=== PATIENT | male | born 1975 | race Caucasian/White ===

== ENCOUNTER 2018-02-07 15:02 | Inpatient (IN) | payer OTHER ==
[2018-02-07 16:12] VITALS: BMI 24.7
--- NOTE | 2018-02-07 16:25 | HP ---
COWS - Scale Resting Pulse: 0= NC 80 or Below Sweatin= No chills or Flushing Restless Observation: 1= Difficult to Sit Still Pupil Size: 0= Normal to Room Light Bone or Joint Aches: 0= None Runny Nose/ Eye Tearin= None GI Upset > 30mins: 2= Nausea/Diarrhea Tremor Observation: 2= Slight Tremor Visible Yawning Observation: 1= 1-2x During Session Anxiety or Irritability: 2=Irritable/Anxious Goose Flesh Skin: 0=Smooth Skin COWS Score: 8 CIWA Score - CIWA Score Nausea/Vomitin-Mild Nausea/No Vomiting Muscle Tremors: 4-Moderate,w/Arms Extend Anxiety: 1-Mildly Anxious Agitation: 1-Slight > Activity Paroxysmal Sweats: No Perspiration Orientation: 0-Oriented Tacttile Disturbances: 0-None Auditory Disturbances: 0-None Visual Disturbances: 0-None Headache: 2-Mild CIWA-Ar Total Score: 9 Admission ROS S - HPI Chief Complaint: Here for alcohol withdrawal and detox. Allergies/Adverse Reactions: Allergies Allergy/AdvReac Type Severity Reaction Status Date / Time No Known Allergies Allergy Verified 02/07/18 17:02 History of Present Illness: Hx of alcohol use disorder since age 20. Currently drinks 1 pint vodka daily. Last drink on 02/06. Hx heroin use disorder. Uses approx 5 bags daily IV, despite being on methadone maintenance. Last heroin use 02/06/18. Last methadone was 02/07/18. States on 110 mg PO daily. [facility] is [facility] @ [address] [place] [address]. .(ID# [id number]) ocaine use disorder since age 20. Uses approx 2 gm IV. Last use on 02/06. Hx. Asthma last exacerbation approx 3 months ago. States has Myasthenia Gravis w/ last prednisone 1 month ago. - Ebola screening Have you traveled outside of the country in the last 21 days: No Have you had contact with anyone from an Ebola affected area: No Have you been sick,other than usual withdrawal symptoms: No Do you have a fever: No - Review of Systems Constitutional: Chills, Loss of Appetite, Changes in sleep (Occ takes unknow pill for sleep. Last used 1 week ago.), Unintentional Wgt. Loss (r/t change in eating habits.) EENT: reports: Dental Problems (Missing a few teeth. No difficulty chewing or swallowing.), Other (Difficulty opening (R) eye lid. States r/t Myasthenia Gravis. Denies double vision.) Respiratory: reports: Other (Hx. Asthma. Denies SOB or wheezing at this time.) Cardiac: reports: No Symptoms Reported GI: reports: Constipated (Stool is hard and has difficulty pushing.) : reports: No Symptoms Reported Musculoskeletal: reports: Back Pain (Occ when sleeps. Subsides on own. 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.) Hematology: reports: No Symptoms Reported Psychiatric: reports: Orientated x3, Agitated, Anxious, Depressed (Recent depression r/t to current drug situation.) Patient History - Patient Medical History Hx Anemia: No Hx Asthma: Yes (Uses albuterol inhaler, as needed) Hx Chronic Obstructive Pulmonary Disease (COPD): No Hx Cancer: No Hx Cardiac Disorders: No Hx Congestive Heart Failure: No Hx Hypertension: Yes (Stopped 6 months ago ) Hx Hypercholesterolemia: Yes (Stopped 6 months ago ) Hx Pacemaker: No HX Cerebrovascular Accident: No Hx Seizures: No Hx Dementia: No Hx Diabetes: No Hx Gastrointestinal Disorders: No Hx Liver Disease: No Hx Genitourinary Disorders: No Hx Sexually Transmitted Disorders: No Hx Renal Disease (ESRD): No Hx Thyroid Disease: No Hx Human Immunodeficiency Virus (HIV): No Hx Hepatitis C: Yes (Treated in past w/ interferon) Hx Depression: Yes (No suicide or violent ideation.) Hx Suicide Attempt: Yes Hx Bipolar Disorder: No Hx Schizophrenia: No - Smoking Cessation Smoking history: Current every day smoker Have you smoked in the past 12 months: Yes Aproximately how many cigarettes per day: 10 Hx Chewing Tobacco Use: No Initiated information on smoking cessation: Yes 'Breaking Loose' booklet given: 02/07/18 - Substance & Tx. History Hx Alcohol Use: Yes - Substances Abused Alcohol Route: Oral Frequency: Daily Amount used: 1 pint vodka Age of first use: 23 Date of Last Use: 02/06/18 (12 noon) Cocaine Route: Injection Frequency: Daily Amount used: 2 gm Age of first use: 20 Date of Last Use: 02/06/18 Heroin Route: Injection Frequency: Daily Age of first use: 20 Date of Last Use: 02/06/18 Family Disease History - Family Disease History Family History: Denies Admission Physical Exam [facility] - Vital Signs Vital Signs: Vital Signs - 24 hr 02/07/18 16:10 Temperature 96.8 F L Pulse Rate 58 L Respiratory 18 Rate Blood Pressure 111/75 - Physical General Appearance: Yes: Mild Distress, Tremorous, Anxious HEENTM: Yes: EOMI, Hearing grossly Normal, Normal Voice, CHHAYA (Pupils at 2 mm.) , Other (Rigo scleral w/ injection. Conjunctiva pink and w/o exudate. (R) droopy eyelid and (R) facial droop.) Respiratory: Yes: Lungs Clear, Normal Breath Sounds, No Respiratory Distress Neck: Yes: No masses,lesions,Nodules, Supple Breast: Yes: Breast Exam Deferred Cardiology: Yes: Regular Rhythm, S1, S2, Bradycardia Abdominal: Yes: Normal Bowel Sounds, Non Tender, Soft, Hernia (Supra-umbilical hernia. Reducible and non-tender.) Back: Yes: Normal Inspection Musculoskeletal: Yes: full range of Motion, Gait Steady Extremities: Yes: Normal Capillary Refill, Non-Tender, Tremors Neurological: Yes: Fully Oriented, Alert, Motor Strength 5/5 Integumentary: Yes: Dry (Dry mucous membranes. Decreased skin turgor.), Track Suggs Lymphatic: Yes: Within Normal Limits - Addiitonal Findings: Old and new track suggs on arms. - Diagnostic (1) Alcohol withdrawal Current Visit: Yes Status: Acute Qualifiers: Complication of substance-induced condition: uncomplicated Qualified Code(s ): F10.230 - Alcohol dependence with withdrawal, uncomplicated (2) Methadone maintenance therapy patient Current Visit: Yes Status: Chronic (3) Cocaine use disorder Current Visit: Yes Status: Acute (4) Nicotine dependence Current Visit: Yes Status: Acute Qualifiers: Nicotine product type: cigarettes Substance use status: in withdrawal Qualified Code(s): F17.213 - Nicotine dependence, cigarettes, with withdrawal (5) Myasthenia gravis Current Visit: Yes Status: Acute (6) Hernia, umbilical Current Visit: Yes Status: Chronic Qualifiers: Obstruction and gangrene presence: without obstruction or gangrene Qualified Code(s): K42.9 - Umbilical hernia without obstruction or gangrene (7) Heroin use Current Visit: Yes Status: Acute (8) Dehydration Current Visit: Yes Status: Acute (9) Constipation Current Visit: Yes Status: Acute Qualifiers: Constipation type: unspecified constipation type Qualified Code(s): K59.00 - Constipation, unspecified (10) Bradycardia Current Visit: Yes Status: Chronic Cleared for Admission [facility] - Detox or Rehab [facility] Level of Care: Medically Supervised Detox Regimen/Protocol: Librium [facility] Breath Alcohol Content Breath Alcohol Content: 0 Urine Drug Screen - Results Drug Screen Negative: No Urine Drug Screen Results: ASHLY-Cocaine, OPI-Opiates, MTD-Methadone
[2018-02-07] MEDS ORDERED: MAGNESIUM HYDROX 2400MG/30ML ORAL SUSPENSION 30 ML CUP PO PRN (17:29)
[2018-02-07] MEDS ORDERED: MAG HYDROX/AL HYDROX/SIMETH 30 ML UNIT-DOSE CUP PO PRN (17:29)
[2018-02-07] MEDS ORDERED: P-EPHED 60MG/TRIPROLIDI 2.5MG TABLET PO PRN (17:29)
[2018-02-07] MEDS ORDERED: IBUPROFEN 400 MG TABLET (FP) PO PRN (17:29)
[2018-02-07] MEDS ORDERED: NICOTINE POLACRILEX 2 MG GUM BC PRN (17:29)
[2018-02-07] MEDS ORDERED: MAGNESIUM CITRATE 300 ML BOTTLE PO PRN (17:29)
[2018-02-07] MEDS ORDERED: guaiFENesin/D-METHORPHAN HB 10 ML UNIT-DOSE CUPS PO PRN (17:29)
[2018-02-07] MEDS ORDERED: hydrOXYzine PAMOATE 50 MG CAPSULE (FP) PO PRN (17:29)
[2018-02-07] MEDS ORDERED: MENTHOL/PHENOL 1 EACH UD MM PRN (17:29)
[2018-02-07] MEDS ORDERED: chlordiazePOXIDE HCL 25 MG CAPSULE PO PRN (17:29)
[2018-02-07] MEDS ORDERED: ACETAMINOPHEN 325 MG TABLET (FP) PO PRN (17:29)
[2018-02-07] MEDS ORDERED: LOPERAMIDE HCL 2 MG CAPSULE PO PRN (17:29)
[2018-02-07] MEDS ORDERED: chlordiazePOXIDE HCL 25 MG CAPSULE PO ONE (18:45)
[2018-02-07] MEDS: chlordiazePOXIDE HCL 25 MG CAPSULE PO SCH (22:05)
[2018-02-07] MEDS: THIAMINE HCL 100 MG TABLET (FP) PO SCH (22:05)
[2018-02-07] MEDS: DOCUSATE SODIUM 100 MG CAPSULE (FP) PO SCH (22:05)
[2018-02-08 04:12] LABS: URINE APPEARANCE TURBID; URINE BILIRUBIN NEGATIVE (<2.0 mg/dL); URINE BLOOD NEGATIVE (NEGATIVE); URINE COLOR AMBER; URINE GLUCOSE (UA) NEGATIVE (NEGATIVE); URINE KETONE NEGATIVE (NEGATIVE); URINE LEUK ESTERASE TRACE (NEGATIVE); URINE NITRITE NEGATIVE (NEGATIVE); URINE PROTEIN NEGATIVE (NEGATIVE)
[2018-02-08 04:24] LABS: EPI CELLS RARE /HPF (FEW); URINE BACTERIA MODERATE /hpf (NONE SEEN); URINE HYALINE CAST 7 /lpf; URINE MUCUS RARE
[2018-02-08] MEDS: chlordiazePOXIDE HCL 25 MG CAPSULE PO SCH ×4 (05:24→22:12)
[2018-02-08] MEDS ORDERED: METHADONE HCL 10 MG TABLET PO SCH (06:00)
[2018-02-08] MEDS ORDERED: METHADONE HCL 10 MG TABLET ONE (09:08)
[2018-02-08] MEDS ORDERED: METHADONE HCL 40 MG DISPERSABLE TABLET ONE (09:09)
[2018-02-08] MEDS: METHADONE 80 MG, METHADONE 30 MG PO SCH (09:13)
[2018-02-08 10:17] LABS: HEMATOCRIT 39.2 % (35.4-49); HEMOGLOBIN 12.7 GM/dL (11.7-16.9); MCH 26.1 pg (25.7-33.7); MCHC 32.4 g/dl (32.0-35.9); MEAN CELL VOLUME 80.6 fl (80-96); PLATELET COUNT 183 K/MM3 (134-434); RBC 4.86 M/mm3 (4.00-5.60); RDW 16.9 % (11.9-15.9)
[2018-02-08] MEDS: PRENATAL VITAMINS W/ FOLIC ACID TABLET (FP) PO SCH (10:34)
[2018-02-08] MEDS: NICOTINE 14 MG/24 HOURS TOPICAL PATCH TD SCH (10:34)
[2018-02-08 10:52] LABS: CHLORIDE 107 mmol/L (98-107); POTASSIUM 4.4 mmol/L (3.5-5.1); SODIUM 143 mmol/L (136-145)
[2018-02-08 11:10] LABS: ALBUMIN 3.1 g/dl (3.4-5.0); ALK PHOS 88 U/L (45-117); ANION GAP 7 (8-16); BILIRUBIN,TOTAL 0.4 mg/dL (0.2-1.0); BLOOD UREA NITROGEN 14 mg/dL (7-18); CALCIUM 8.1 mg/dL (8.5-10.1); CO2 29 mmol/L (21-32); CREATININE 0.7 mg/dL (0.7-1.3); GLUCOSE,RANDOM 94 mg/dL (74-106); SGOT/AST 47 U/L (15-37); SGPT/ALT 70 U/L (12-78); TOT PROT 5.5 g/dl (6.4-8.2)
--- NOTE | 2018-02-08 11:17 | CONSULT ---
[facility] Psychiatric Consult - Data Date of interview: 02/08/18 Admission source: [facility] Identifying data: Readmission to [facility] for this 42 y/o [place] male seeking detox treatment on for heroin,cocaine,alcohol and cannabis dependence.Patient is single,a father of one,homeless,unemployed and supported on Public Assistance. Substance Abuse History: Confirmed by the patient in this interview.Smoking history: Current every day smoker. Have you smoked in the past 12 months: Yes. Aproximately how many cigarettes per day: 10. Hx Chewing Tobacco Use: No. Initiated information on smoking cessation: Yes. 'Breaking Loose' booklet given : 02/07/18. - Substance & Tx. History. Hx Alcohol Use: Yes. - Substances Abused. Alcohol. Route: Oral. Frequency: Daily. Amount used: 1 pint vodka. Age of first use: 23. Date of Last Use: 02/06/18 (12 noon). Cocaine. Route: Injection. Frequency: Daily. Amount used: 2 gm. Age of first use: 20. Date of Last Use: 02/06/18. Heroin. Route: Injection. Frequency: Daily. Age of first use: 20. Date of Last Use: 02/06/18 Medical History: Multiple medical co-morbidities : hepatitis C,hypertension, myasthenia gravis,dyslipidemia,bronchial asthma and umbilical hernia (untreated) . Psychiatric History: Patient denies history of psychiatric hospitalizations or suicide attempts.Mr Almaguer is currently on methadone maintenance (110 mg/day) at the [facility] ([facility]) in [facility]. Physical/Sexual Abuse/Trauma History: Patient denies. Additional Comment: Urine Drug Screen Results: ASHLY-Cocaine, OPI-Opiates, MTD- Methadone.Noted. Mental Status Exam - Mental Status Exam Alert and Oriented to: Time, Place, Person Cognitive Function: Good Patient Appearance: Well Groomed (covered with tattoos : both arms + forearms) Mood: Nervous, Withdrawn, Anxious Affect: Mood Congruent Patient Behavior: Fatigued, Cooperative Speech Pattern: Clear Voice Loudness: Normal Thought Process: Intact, Goal Oriented Thought Disorder: Not Present Hallucinations: Denies Suicidal Ideation: Denies Homicidal Ideation: Denies Insight/Judgement: Poor Sleep: Well Appetite: Good Muscle strength/Tone: Normal Gait/Station: Normal Psychiatric Findings - Problem List ([place] 1, 2,3) (1) Opioid dependence on agonist therapy Current Visit: Yes Status: Acute (2) Alcohol dependence Current Visit: Yes Status: Acute (3) Alcohol withdrawal Current Visit: Yes Status: Acute Qualifiers: Complication of substance-induced condition: uncomplicated Qualified Code(s ): F10.230 - Alcohol dependence with withdrawal, uncomplicated (4) Cocaine dependence Current Visit: Yes Status: Acute (5) Nicotine dependence Current Visit: Yes Status: Acute Qualifiers: Nicotine product type: cigarettes Substance use status: in withdrawal Qualified Code(s): F17.213 - Nicotine dependence, cigarettes, with withdrawal (6) Nicotine dependence Current Visit: Yes Status: Acute - Initial Treatment Plan Initial Treatment Plan: Psychoeducation.Detoxification.Supportive/Group therapy.Observation.
--- NOTE | 2018-02-08 14:54 | PN ---
[facility] CIWA - CIWA Score Nausea/Vomitin-No Nausea/No Vomiting Muscle Tremors: 3 Anxiety: 3 Agitation: 2 Paroxysmal Sweats: 3 Orientation: 0-Oriented Tacttile Disturbances: 2-Mild Itch/Numbness/Burn Auditory Disturbances: 0-None Visual Disturbances: 0-None Headache: 4-Moderately Severe CIWA-Ar Total Score: 17 BHS COWS - Scale Resting Pulse: 0= MD 80 or Below Sweatin= Chills/Flushing Restless Observation: 1= Difficult to Sit Still Pupil Size: 0= Normal to Room Light Bone or Joint Aches: 0= None Runny Nose/ Eye Tearin= Nasal Congestion GI Upset > 30mins: 1= Stomach Cramp Tremor Observation of Outstretched Hands: 2= Slight Tremor Visible Yawning Observation: 1= 1-2x During Session Anxiety or Irritability: 2=Irritable/Anxious Goose Flesh Skin: 3=Piloerection COWS Score: 12 S Progress Note (SOAP) Subjective: Chills, Sweating, Stomach Cramping, H/A, Tremors. Objective: PATIENT A & O X 3, OBSERVED AMBULATING ON UNIT. NO ACUTE DISTRESS. 02/08/18 14:52 Vital Signs Temperature 97 F L 02/08/18 13:57 Pulse Rate 56 L 02/08/18 13:57 Respiratory Rate 18 02/08/18 13:57 Blood Pressure 122/74 02/08/18 13:57 O2 Sat by Pulse Oximetry (%) Laboratory Tests 02/07/18 02/08/18 02/08/18 22:25 07:30 07:30 WBC 5.0 RBC 4.86 Hgb 12.7 Hct 39.2 MCV 80.6 MCH 26.1 MCHC 32.4 RDW 16.9 H Plt Count 183 MPV 9.0 Sodium 143 Potassium 4.4 Chloride 107 Carbon Dioxide 29 Anion Gap 7 L BUN 14 Creatinine 0.7 Creat Clearance w eGFR > 60 Random Glucose 94 Calcium 8.1 L Total Bilirubin 0.4 AST 47 H ALT 70 Alkaline Phosphatase 88 Total Protein 5.5 L Albumin 3.1 L Urine Color [place] Urine Appearance Turbid Urine pH 5.0 Ur Specific [place] 1.030 Urine Protein Negative Urine Glucose (UA) Negative Urine Ketones Negative Urine Blood Negative Urine Nitrite Negative Urine Bilirubin Negative Urine Urobilinogen 2.0 Ur Leukocyte Esterase Trace Urine WBC (Auto) 22 Urine RBC (Auto) 15 Ur Epithelial Cells Rare Urine Bacteria Moderate Hyaline Casts 7 Urine Mucus Rare LABS NOTED. RPR RESULT PENDING. 02/08/18 14:54 Assessment: 02/08/18 14:53 WITHDRAWAL SYMPTOMS. Plan: CONTINUE DETOX.
[2018-02-08] MEDS: DOCUSATE SODIUM 100 MG CAPSULE (FP) PO SCH (22:12)
[2018-02-08] MEDS: THIAMINE HCL 100 MG TABLET (FP) PO SCH (22:12)
[2018-02-08] MEDS: MELATONIN 5 MG TABLETS PO PRN (22:13)
[2018-02-09] MEDS ORDERED: METHADONE HCL 10 MG TABLET ONE (04:45)
[2018-02-09] MEDS ORDERED: METHADONE HCL 40 MG DISPERSABLE TABLET ONE (04:46)
[2018-02-09] MEDS: chlordiazePOXIDE HCL 25 MG CAPSULE PO SCH ×3 (05:31→17:22)
[2018-02-09] MEDS: METHADONE 80 MG, METHADONE 30 MG PO SCH (05:31)
[2018-02-09] MEDS: PRENATAL VITAMINS W/ FOLIC ACID TABLET (FP) PO SCH (10:06)
[2018-02-09] MEDS: NICOTINE 14 MG/24 HOURS TOPICAL PATCH TD SCH (10:06)
--- NOTE | 2018-02-09 15:21 | PN ---
S CIWA - CIWA Score Nausea/Vomitin-No Nausea/No Vomiting Muscle Tremors: 3 Anxiety: 4-Mod. Anxious/Guarded Agitation: 2 Paroxysmal Sweats: 3 Orientation: 0-Oriented Tacttile Disturbances: 2-Mild Itch/Numbness/Burn Auditory Disturbances: 0-None Visual Disturbances: 0-None Headache: 0-None Present CIWA-Ar Total Score: 14 BHS COWS - Scale Resting Pulse: 0= SD 80 or Below Sweatin= Chills/Flushing Restless Observation: 0= Sits Still Pupil Size: 0= Normal to Room Light Bone or Joint Aches: 2= Severe Diffuse Aches Runny Nose/ Eye Tearin= Nasal Congestion GI Upset > 30mins: 1= Stomach Cramp Tremor Observation of Outstretched Hands: 2= Slight Tremor Visible Yawning Observation: 1= 1-2x During Session Anxiety or Irritability: 2=Irritable/Anxious Goose Flesh Skin: 3=Piloerection COWS Score: 13 S Progress Note (SOAP) Subjective: Tremors, Interrupted Sleep, Body Aches, Stomach Cramping, Sweating, Fatigue. Objective: PATIENT A & O X 3, OBSERVED AMBULATING ON UNIT. NO ACUTE DISTRESS. 02/09/18 15:22 Vital Signs Temperature 97.1 F L 02/09/18 13:34 Pulse Rate 50 L 02/09/18 13:34 Respiratory Rate 18 02/09/18 13:34 Blood Pressure 124/70 02/09/18 13:34 O2 Sat by Pulse Oximetry (%) Laboratory Tests 02/07/18 02/08/18 02/08/18 22:25 07:30 07:30 WBC 5.0 RBC 4.86 Hgb 12.7 Hct 39.2 MCV 80.6 MCH 26.1 MCHC 32.4 RDW 16.9 H Plt Count 183 MPV 9.0 Sodium 143 Potassium 4.4 Chloride 107 Carbon Dioxide 29 Anion Gap 7 L BUN 14 Creatinine 0.7 Creat Clearance w eGFR > 60 Random Glucose 94 Calcium 8.1 L Total Bilirubin 0.4 AST 47 H ALT 70 Alkaline Phosphatase 88 Total Protein 5.5 L Albumin 3.1 L Urine Color [place] Urine Appearance Turbid Urine pH 5.0 Ur Specific [place] 1.030 Urine Protein Negative Urine Glucose (UA) Negative Urine Ketones Negative Urine Blood Negative Urine Nitrite Negative Urine Bilirubin Negative Urine Urobilinogen 2.0 Ur Leukocyte Esterase Trace Urine WBC (Auto) 22 Urine RBC (Auto) 15 Ur Epithelial Cells Rare Urine Bacteria Moderate Hyaline Casts 7 Urine Mucus Rare RPR Titer 02/08/18 07:30 WBC RBC Hgb Hct MCV MCH MCHC RDW Plt Count MPV Sodium Potassium Chloride Carbon Dioxide Anion Gap BUN Creatinine Creat Clearance w eGFR Random Glucose Calcium Total Bilirubin AST ALT Alkaline Phosphatase Total Protein Albumin Urine Color Urine Appearance Urine pH Ur Specific [place] Urine Protein Urine Glucose (UA) Urine Ketones Urine Blood Urine Nitrite Urine Bilirubin Urine Urobilinogen Ur Leukocyte Esterase Urine WBC (Auto) Urine RBC (Auto) Ur Epithelial Cells Urine Bacteria Hyaline Casts Urine Mucus RPR Titer Nonreactive LABS NOTED. Assessment: 02/09/18 15:22 WITHDRAWAL SYMPTOMS. Plan: CONTINUE DETOX. INCREASE DAILY PO FLUID INTAKE.
[2018-02-09] MEDS: MELATONIN 5 MG TABLETS PO PRN (22:11)
[2018-02-09] MEDS: THIAMINE HCL 100 MG TABLET (FP) PO SCH (22:11)
[2018-02-09] MEDS: chlordiazePOXIDE 5 MG CAPSULE PO SCH (22:11)
[2018-02-09] MEDS: DOCUSATE SODIUM 100 MG CAPSULE (FP) PO SCH (22:11)
--- NOTE | 2018-02-09 22:45 | EKG ---
Test Reason : Blood Pressure : / mmHG Vent. Rate : 049 BPM Atrial Rate : 049 BPM P-R Int : 174 ms QRS Dur : 094 ms QT Int : 462 ms P-R-T Axes : 040 004 010 degrees QTc Int : 417 ms SINUS BRADYCARDIA MODERATE VOLTAGE CRITERIA FOR LVH, MAY BE NORMAL VARIANT NONSPECIFIC T WAVE ABNORMALITY ABNORMAL ECG NO PREVIOUS ECGS AVAILABLE Confirmed by KIKI HUNTER MD ([id number]) on 02/09/2018 10:44:53 PM Referred By: Confirmed By:KIKI HUNTER MD
[2018-02-10] MEDS ORDERED: METHADONE HCL 10 MG TABLET ONE (04:36)
[2018-02-10] MEDS ORDERED: METHADONE HCL 40 MG DISPERSABLE TABLET ONE (04:37)
[2018-02-10] MEDS: METHADONE 80 MG, METHADONE 30 MG PO SCH (05:13)
[2018-02-10] MEDS: chlordiazePOXIDE 5 MG CAPSULE PO SCH ×3 (05:13→17:26)
--- NOTE | 2018-02-10 10:10 | PN ---
BHS Progress Note (SOAP) Subjective: ANXIETY,SWEATS,DIARRHEA. Objective: 02/10/18 10:09 Vital Signs 02/10/18 02/10/18 02/10/18 03:30 06:30 06:42 Temperature 96.6 F L Pulse Rate 52 L Respiratory 18 18 18 Rate Blood Pressure 114/66 02/10/18 09:18 Temperature 97.6 F Pulse Rate 54 L Respiratory 18 Rate Blood Pressure 128/74 Laboratory Tests 02/07/18 02/08/18 02/08/18 22:25 07:30 07:30 WBC 5.0 RBC 4.86 Hgb 12.7 Hct 39.2 MCV 80.6 MCH 26.1 MCHC 32.4 RDW 16.9 H Plt Count 183 MPV 9.0 Sodium 143 Potassium 4.4 Chloride 107 Carbon Dioxide 29 Anion Gap 7 L BUN 14 Creatinine 0.7 Creat Clearance w eGFR > 60 Random Glucose 94 Calcium 8.1 L Total Bilirubin 0.4 AST 47 H ALT 70 Alkaline Phosphatase 88 Total Protein 5.5 L Albumin 3.1 L Urine Color [place] Urine Appearance Turbid Urine pH 5.0 Ur Specific [place] 1.030 Urine Protein Negative Urine Glucose (UA) Negative Urine Ketones Negative Urine Blood Negative Urine Nitrite Negative Urine Bilirubin Negative Urine Urobilinogen 2.0 Ur Leukocyte Esterase Trace Urine WBC (Auto) 22 Urine RBC (Auto) 15 Ur Epithelial Cells Rare Urine Bacteria Moderate Hyaline Casts 7 Urine Mucus Rare RPR Titer 02/08/18 07:30 WBC RBC Hgb Hct MCV MCH MCHC RDW Plt Count MPV Sodium Potassium Chloride Carbon Dioxide Anion Gap BUN Creatinine Creat Clearance w eGFR Random Glucose Calcium Total Bilirubin AST ALT Alkaline Phosphatase Total Protein Albumin Urine Color Urine Appearance Urine pH Ur Specific [place] Urine Protein Urine Glucose (UA) Urine Ketones Urine Blood Urine Nitrite Urine Bilirubin Urine Urobilinogen Ur Leukocyte Esterase Urine WBC (Auto) Urine RBC (Auto) Ur Epithelial Cells Urine Bacteria Hyaline Casts Urine Mucus RPR Titer Nonreactive Assessment: 02/10/18 10:10 WITHDRAWAL SX Plan: CONTINUE DETOX REPEAT UA TODAY
[2018-02-10] MEDS: PRENATAL VITAMINS W/ FOLIC ACID TABLET (FP) PO SCH (10:12)
[2018-02-10] MEDS: NICOTINE 14 MG/24 HOURS TOPICAL PATCH TD SCH (10:12)
[2018-02-10] MEDS: chlordiazePOXIDE HCL 10 MG CAPSULE PO SCH (21:59)
[2018-02-10] MEDS: DOCUSATE SODIUM 100 MG CAPSULE (FP) PO SCH (22:00)
[2018-02-10] MEDS: THIAMINE HCL 100 MG TABLET (FP) PO SCH (22:00)
[2018-02-10] MEDS: MELATONIN 5 MG TABLETS PO PRN (22:00)
[2018-02-11] MEDS ORDERED: METHADONE HCL 10 MG TABLET ONE (04:26)
[2018-02-11] MEDS ORDERED: METHADONE HCL 40 MG DISPERSABLE TABLET ONE (04:27)
[2018-02-11] MEDS: METHADONE 80 MG, METHADONE 30 MG PO SCH (05:18)
[2018-02-11] MEDS: chlordiazePOXIDE HCL 10 MG CAPSULE PO SCH ×3 (05:18→17:19)
[2018-02-11] MEDS: PRENATAL VITAMINS W/ FOLIC ACID TABLET (FP) PO SCH (10:16)
[2018-02-11] MEDS: NICOTINE 14 MG/24 HOURS TOPICAL PATCH TD SCH (10:16)
--- NOTE | 2018-02-11 11:03 | PN ---
S Progress Note (SOAP) Subjective: DETOX COMPLETED. ALERT O X 3. NAD. Objective: 02/11/18 11:01 Vital Signs 02/11/18 02/11/18 02/11/18 03:30 05:50 09:11 Temperature 96.8 F L 96.8 F L Pulse Rate 48 L 68 Respiratory 18 18 18 Rate Blood Pressure 121/69 120/84 Laboratory Last Values WBC 5.0 K/mm3 (4.0-10.0) 02/08/18 07:30 RBC 4.86 M/mm3 (4.00-5.60) 02/08/18 07:30 Hgb 12.7 GM/dL (11.7-16.9) 02/08/18 07:30 Hct 39.2 % (35.4-49) 02/08/18 07:30 MCV 80.6 fl (80-96) 02/08/18 07:30 MCH 26.1 pg (25.7-33.7) 02/08/18 07:30 MCHC 32.4 g/dl (32.0-35.9) 02/08/18 07:30 RDW 16.9 % (11.9-15.9) H 02/08/18 07:30 Plt Count 183 K/MM3 (134-434) 02/08/18 07:30 MPV 9.0 fl (7.5-11.1) 02/08/18 07:30 Sodium 143 mmol/L (136-145) 02/08/18 07:30 Potassium 4.4 mmol/L (3.5-5.1) 02/08/18 07:30 Chloride 107 mmol/L (98-107) 02/08/18 07:30 Carbon Dioxide 29 mmol/L (21-32) 02/08/18 07:30 Anion Gap 7 (8-16) L 02/08/18 07:30 BUN 14 mg/dL (7-18) 02/08/18 07:30 Creatinine 0.7 mg/dL (0.7-1.3) 02/08/18 07:30 Creat Clearance w eGFR > 60 (>60) 02/08/18 07:30 Random Glucose 94 mg/dL (74-106) 02/08/18 07:30 Calcium 8.1 mg/dL (8.5-10.1) L 02/08/18 07:30 Total Bilirubin 0.4 mg/dL (0.2-1.0) 02/08/18 07:30 AST 47 U/L (15-37) H 02/08/18 07:30 ALT 70 U/L (12-78) 02/08/18 07:30 Alkaline Phosphatase 88 U/L (45-117) 02/08/18 07:30 Total Protein 5.5 g/dl (6.4-8.2) L 02/08/18 07:30 Albumin 3.1 g/dl (3.4-5.0) L 02/08/18 07:30 Urine Color [place] 02/07/18 22:25 Urine Appearance Turbid 02/07/18 22:25 Urine pH 5.0 (5.0-8.0) 02/07/18 22:25 Ur Specific [place] 1.030 (1.001-1.035) 02/07/18 22:25 Urine Protein Negative (NEGATIVE) 02/07/18 22:25 Urine Glucose (UA) Negative (NEGATIVE) 02/07/18 22:25 Urine Ketones Negative (NEGATIVE) 02/07/18 22:25 Urine Blood Negative (NEGATIVE) 02/07/18 22:25 Urine Nitrite Negative (NEGATIVE) 02/07/18 22:25 Urine Bilirubin Negative (<2.0 mg/dL) 02/07/18 22:25 Urine Urobilinogen 2.0 mg/dL (0.2-1.0) 02/07/18 22:25 Ur Leukocyte Esterase Trace (NEGATIVE) 02/07/18 22:25 Urine WBC (Auto) 22 /hpf (3-5) 02/07/18 22:25 Urine RBC (Auto) 15 /hpf (0-3) 02/07/18 22:25 Ur Epithelial Cells Rare /HPF (FEW) 02/07/18 22:25 Urine Bacteria Moderate /hpf (NONE SEEN) 02/07/18 22:25 Hyaline Casts 7 /lpf 02/07/18 22:25 Urine Mucus Rare 02/07/18 22:25 RPR Titer Nonreactive (NONREACTIVE) 02/08/18 07:30 REPEAT UA RESULT PENDING ASYMPTOMATIC Assessment: 02/11/18 11:02 MEDICALLY STABLE. Plan: D/C PT TODAY
--- NOTE | 2018-02-11 11:13 | DS ---
[facility] Detox Discharge Summary Admission Date: 02/07/18 Discharge Date: 02/11/18 - History Present History: Alcohol Dependence, Cocaine Dependence, MMTP Additional Comments: DETOX COMPLETED. ALERT O X 3. NAD. REPORTS PRIMARY CARE AT [facility] NEEDED. Pertinent Past History: PLEASE SEE DX BELOW - Physical Exam Results Vital Signs: Vital Signs Temperature 96.8 F L 02/11/18 09:11 Pulse Rate 68 02/11/18 09:11 Respiratory Rate 18 02/11/18 09:11 Blood Pressure 120/84 02/11/18 09:11 O2 Sat by Pulse Oximetry (%) Pertinent Admission Physical Exam Findings: WITHDRAWAL SX Laboratory Tests 02/07/18 02/08/18 02/08/18 22:25 07:30 07:30 WBC 5.0 RBC 4.86 Hgb 12.7 Hct 39.2 MCV 80.6 MCH 26.1 MCHC 32.4 RDW 16.9 H Plt Count 183 MPV 9.0 Sodium 143 Potassium 4.4 Chloride 107 Carbon Dioxide 29 Anion Gap 7 L BUN 14 Creatinine 0.7 Creat Clearance w eGFR > 60 Random Glucose 94 Calcium 8.1 L Total Bilirubin 0.4 AST 47 H ALT 70 Alkaline Phosphatase 88 Total Protein 5.5 L Albumin 3.1 L Urine Color [place] Urine Appearance Turbid Urine pH 5.0 Ur Specific [place] 1.030 Urine Protein Negative Urine Glucose (UA) Negative Urine Ketones Negative Urine Blood Negative Urine Nitrite Negative Urine Bilirubin Negative Urine Urobilinogen 2.0 Ur Leukocyte Esterase Trace Urine WBC (Auto) 22 Urine RBC (Auto) 15 Ur Epithelial Cells Rare Urine Bacteria Moderate Hyaline Casts 7 Urine Mucus Rare RPR Titer 02/08/18 07:30 WBC RBC Hgb Hct MCV MCH MCHC RDW Plt Count MPV Sodium Potassium Chloride Carbon Dioxide Anion Gap BUN Creatinine Creat Clearance w eGFR Random Glucose Calcium Total Bilirubin AST ALT Alkaline Phosphatase Total Protein Albumin Urine Color Urine Appearance Urine pH Ur Specific [place] Urine Protein Urine Glucose (UA) Urine Ketones Urine Blood Urine Nitrite Urine Bilirubin Urine Urobilinogen Ur Leukocyte Esterase Urine WBC (Auto) Urine RBC (Auto) Ur Epithelial Cells Urine Bacteria Hyaline Casts Urine Mucus RPR Titer Nonreactive - Treatment Hospital Course: Detox Protocol Followed, Detoxed Safely, Responded well, Discharged Condition Good, Rehab Referral Accepted Patient has Accepted a Rehab Referral to: [facility] - Medication Discharge Medications: Ambulatory Orders Methadone (Detox) [Dolophine -] 110 mg PO DAILY 02/07/18 - Diagnosis (1) Alcohol dependence with uncomplicated withdrawal Current Visit: Yes Status: Acute (2) Dehydration Current Visit: Yes Status: Acute (3) Nicotine dependence Current Visit: Yes Status: Acute Qualifiers: Nicotine product type: cigarettes Substance use status: in withdrawal Qualified Code(s): F17.213 - Nicotine dependence, cigarettes, with withdrawal (4) Methadone maintenance therapy patient Current Visit: Yes Status: Chronic (5) Myasthenia gravis Current Visit: Yes Status: Chronic (6) Cocaine dependence Current Visit: Yes Status: Acute Qualifiers: Substance use status: uncomplicated Qualified Code(s): F14.20 - Cocaine dependence, uncomplicated (7) Hernia, umbilical Current Visit: Yes Status: Chronic Qualifiers: Obstruction and gangrene presence: without obstruction or gangrene Qualified Code(s): K42.9 - Umbilical hernia without obstruction or gangrene - AMA Did Patient Leave Against Medical Advice: No
[2018-02-11 13:47] LABS: URINE APPEARANCE CLEAR; URINE BILIRUBIN NEGATIVE (<2.0 mg/dL); URINE BLOOD NEGATIVE (NEGATIVE); URINE COLOR LTYELLOW; URINE GLUCOSE (UA) NEGATIVE (NEGATIVE); URINE KETONE NEGATIVE (NEGATIVE); URINE LEUK ESTERASE NEGATIVE (NEGATIVE); URINE NITRITE NEGATIVE (NEGATIVE); URINE PROTEIN NEGATIVE (NEGATIVE); URINE UROBILINOGEN NEGATIVE mg/dL (0.2-1.0)
--- NOTE | 2018-02-11 15:29 | PN ---
[facility] Progress Note Note: PT DISCHARGE TO BE HELD TODAY FOR TOMORROW TO BE PICKED UP FOR [facility] IN THE MORNING THEY WERE UNABLE TO AUCTION CLERK PATIENT TO REHAB TODAY PER COUNSELOR, DARLINE ALBARRAN.
--- NOTE | 2018-02-11 17:06 | PN ---
Psychiatric Progress Note Vital Signs: Vital Signs Period Temp Pulse Resp BP Sys/Brown Pulse Ox Last 24 Hr 96.8 F-97.9 F 48-68 18-20 92-121/52-84 Date of Session: 02/11/18 Chief Complaint:: " I did not get my klonopin." HPI: Patient has completed his detoxification regime.Admitted to [address] [place] [address] for alcohol,cocaine and opioid dependence.Currently awaiting his transfer to an inpatient rehabilitation program.In the meantime, it appears that this patient has approached staff with complaint of anxiety.In reality, upon examination, the patient was simply inquiring about the feasibility of the acquisition of scripts for klonopin once discharged to the community. ROS: Unremarkable.No compalints offered.Cognition remains intact. Current Medications: Active Medications Generic Name Dose Route Start Last Admin Trade Name Freq PRN Reason Stop Dose Admin Acetaminophen 650 mg 02/07/18 17:29 Tylenol - PO Q4H PRN FEVER Al Hydroxide/Mg Hydroxide 30 ml 02/07/18 17:29 Mylanta Oral Suspension - PO Q6H PRN DYSPEPSIA Docusate Sodium 300 mg 02/07/18 22:00 02/10/18 22:00 Colace - PO 300 mg HS JANIS Administration Eucalyptus/Menthol/Phenol/Sorbitol 1 each 02/07/18 17:29 Cepastat Lozenge - MM Q4H PRN SORE THROAT Guaifenesin 10 ml 02/07/18 17:29 Robitussin Dm - PO Q6H PRN COUGH Hydroxyzine Pamoate 50 mg 02/07/18 17:29 Vistaril - PO Q4H PRN AGITATION Ibuprofen 400 mg 02/07/18 17:29 02/10/18 13:57 Motrin - PO 400 mg Q6H PRN Administration PAIN LEVEL 4-6 Loperamide HCl 4 mg 02/07/18 17:29 Imodium - PO Q6H PRN DIARRHEA Magnesium Citrate 300 ml 02/07/18 17:29 Citroma - PO Q48H PRN CONSTIPATION Magnesium Hydroxide 30 ml 02/07/18 17:29 Milk Of Magnesia - PO DAILY PRN CONSTIPATION Melatonin 5 mg 02/07/18 22:00 02/10/18 22:00 Melatonin PO 5 mg HS PRN Administration INSOMNIA Methadone HCl 80 mg/ Methadone 110 mg 02/08/18 09:00 02/11/18 05:18 HCl 30 mg PO 110 mg DAILY@0600 JANIS Administration Nicotine 14 mg 02/08/18 10:00 02/11/18 10:16 Nicoderm Patch - TD 14 mg DAILY JANIS Administration Nicotine Polacrilex 2 mg 02/07/18 17:29 Nicorette Gum - BC Q2H PRN NICOTINE REPLACEMENT RX Multivit/Folic Acid/Iron 1 tab 02/08/18 10:00 02/11/18 10:16 Vitamins (Sjr) - PO 1 tab DAILY JANIS Administration Pseudoephedrine/Triprolidine 1 combo 02/07/18 17:29 Actifed - PO TID PRN NASAL CONGESTION Thiamine HCl 100 mg 02/07/18 22:00 02/10/18 22:00 Vitamin B1 - PO 100 mg HS JANIS Administration Medication(s) Change(s): None. Current Side Effect: No Lab tests ordered: No Lab tests reviewed: Yes Provider note:: Request for re-consult is answered.Chart reviewed.Met with the patient.Mr Almaguer is doing fine.Eager to transition to his rehabilitation program.Observed as ambulatory,pleasant on approach,well-related,euthymic and psychiatrically stable.Educated about the indications of benzodiazepines.Request for clonazepam denied.Well received by the patient.No clinical evidence of anxiety signs or symptoms.Benign hospital course.Patient is at his baseline. Total face to face time:: 15 Mental Status Exam - Mental Status Exam Alert and Oriented to: Time, Place, Person Cognitive Function: Good Patient Appearance: Well Groomed Mood: Euthymic Affect: Appropriate, Normal Range Patient Behavior: Appropriate, Cooperative Speech Pattern: Clear, Appropriate Voice Loudness: Normal Thought Process: Intact, Goal Oriented Thought Disorder: Not Present Hallucinations: Denies Suicidal Ideation: Denies Homicidal Ideation: Denies Insight/Judgement: Fair Sleep: Well Appetite: Good Muscle strength/Tone: Normal Gait/Station: Normal Psychiatric Treatment Plan - Problem List (1) Opioid dependence on agonist therapy Comment: . (2) Alcohol dependence Comment: . (3) Alcohol withdrawal Qualifiers: Complication of substance-induced condition: uncomplicated Qualified Code(s ): F10.230 - Alcohol dependence with withdrawal, uncomplicated Comment: . (4) Cocaine dependence Qualifiers: Substance use status: uncomplicated Qualified Code(s): F14.20 - Cocaine dependence, uncomplicated Comment: . (5) Nicotine dependence Qualifiers: Nicotine product type: cigarettes Substance use status: in withdrawal Qualified Code(s): F17.213 - Nicotine dependence, cigarettes, with withdrawal Comment: . (6) Nicotine dependence Qualifiers: Nicotine product type: cigarettes Substance use status: in withdrawal Qualified Code(s): F17.213 - Nicotine dependence, cigarettes, with withdrawal Comment: . (7) Drug-seeking behavior Comment: .Suspected.
[2018-02-11] MEDS: THIAMINE HCL 100 MG TABLET (FP) PO SCH (22:07)
[2018-02-11] MEDS: DOCUSATE SODIUM 100 MG CAPSULE (FP) PO SCH (22:07)
[2018-02-11] MEDS: MELATONIN 5 MG TABLETS PO PRN (22:08)
[2018-02-12] MEDS ORDERED: METHADONE HCL 10 MG TABLET ONE (04:53)
[2018-02-12] MEDS ORDERED: METHADONE HCL 40 MG DISPERSABLE TABLET ONE (04:53)
[2018-02-12] MEDS: METHADONE 80 MG, METHADONE 30 MG PO SCH (05:16)
[2018-02-12 09:23] VITALS: BP 122/81; PULSE 76; TEMP 97.2
[2018-02-12] MEDS: NICOTINE 14 MG/24 HOURS TOPICAL PATCH TD SCH (10:35)
[2018-02-12] MEDS: PRENATAL VITAMINS W/ FOLIC ACID TABLET (FP) PO SCH (10:35)
--- NOTE | 2018-02-12 14:33 | PN ---
[facility] Progress Note Note: ALERT O X 3. NAD. PT WAS PICKED UP BY [facility] TODAY FOR REHAB. Vital Signs 02/12/18 02/12/18 06:41 09:22 Temperature 96.6 F L 97.2 F L Pulse Rate 52 L 76 Respiratory 18 20 Rate Blood Pressure 118/67 122/81 Laboratory Tests 02/07/18 02/08/18 02/08/18 22:25 07:30 07:30 WBC 5.0 RBC 4.86 Hgb 12.7 Hct 39.2 MCV 80.6 MCH 26.1 MCHC 32.4 RDW 16.9 H Plt Count 183 MPV 9.0 Sodium 143 Potassium 4.4 Chloride 107 Carbon Dioxide 29 Anion Gap 7 L BUN 14 Creatinine 0.7 Creat Clearance w eGFR > 60 Random Glucose 94 Calcium 8.1 L Total Bilirubin 0.4 AST 47 H ALT 70 Alkaline Phosphatase 88 Total Protein 5.5 L Albumin 3.1 L Urine Color [place] Urine Appearance Turbid Urine pH 5.0 Ur Specific [place] 1.030 Urine Protein Negative Urine Glucose (UA) Negative Urine Ketones Negative Urine Blood Negative Urine Nitrite Negative Urine Bilirubin Negative Urine Urobilinogen 2.0 Ur Leukocyte Esterase Trace Urine WBC (Auto) 22 Urine RBC (Auto) 15 Ur Epithelial Cells Rare Urine Bacteria Moderate Hyaline Casts 7 Urine Mucus Rare RPR Titer 02/08/18 02/11/18 07:30 10:00 WBC RBC Hgb Hct MCV MCH MCHC RDW Plt Count MPV Sodium Potassium Chloride Carbon Dioxide Anion Gap BUN Creatinine Creat Clearance w eGFR Random Glucose Calcium Total Bilirubin AST ALT Alkaline Phosphatase Total Protein Albumin Urine Color Ltyellow Urine Appearance Clear Urine pH 8.0 D Ur Specific [place] 1.010 Urine Protein Negative Urine Glucose (UA) Negative Urine Ketones Negative Urine Blood Negative Urine Nitrite Negative Urine Bilirubin Negative Urine Urobilinogen Negative Ur Leukocyte Esterase Negative Urine WBC (Auto) Urine RBC (Auto) Ur Epithelial Cells Urine Bacteria Hyaline Casts Urine Mucus RPR Titer Nonreactive PT IS MEDICALLY STABLE PT WAS D/C'D TO REHAB SCHEDULED AT [facility].
== END 2018-02-12 11:55 | disposition other institution (70) | DRG 773 ==
LOC: YASAS 15:02 → Y3N 18:25
PROVIDERS: ADMIT Surgery; ATTEND Surgery
PROC: HZ2ZZZZ Detoxification Services for Substance Abuse Treatment (ICD-10-PCS; principal; 2018-02-07)
DX: F11.20 Opioid dependence, uncomplicated (principal); F10.230 Alcohol dependence with withdrawal, uncomplicated; F14.20 Cocaine dependence, uncomplicated; F17.213 Nicotine dependence, cigarettes, with withdrawal; G70.00 Myasthenia gravis without (acute) exacerbation; K42.9 Umbilical hernia without obstruction or gangrene; R00.1 Bradycardia, unspecified; K59.00 Constipation, unspecified; J45.909 Unspecified asthma, uncomplicated; Z59.0 Homelessness
CPT/HCPCS: 36415; 80053; 81003; 81015; 85027; 86593; 93005; 93010

== ENCOUNTER 2018-12-08 15:12 | Inpatient (IN) | payer OTHER ==
--- NOTE | 2018-12-08 16:52 | HP ---
CIWA Score Nausea/Vomitin Muscle Tremors: None Anxiety: 3 Agitation: 2 Paroxysmal Sweats: 1-Minimal Palms Moist Orientation: 0-Oriented Tacttile Disturbances: 1-Very Mild Itch/Numbness Auditory Disturbances: 0-None Visual Disturbances: 2-Mild Sensitivity Headache: 0-None Present CIWA-Ar Total Score: 12 - Admission Criteria OASAS Guidelines: Admission for Medically Managed Detox: Requires at least one of the followin. CIWA greater than 12 2. Seizures within the past 24 hours 3. Delirium tremens within the past 24 hours 4. Hallucinations within the past 24 hours 5. Acute intervention needed for co occurring medical disorder 6. Acute intervention needed for co occurring psychiatric disorder 7. Severe withdrawal that cannot be handled at a lower level of care (continued vomiting, continued diarrhea, abnormal vital signs) requiring intravenous medication and/or fluids 8. Admission ROS S - [facility] Chief Complaint: " alcohol detox" Allergies/Adverse Reactions: Allergies Allergy/AdvReac Type Severity Reaction Status Date / Time No Known Allergies Allergy Verified 12/08/18 15:36 History of Present Illness: Patient is a 43 yo male, homeless, with hx of alcohol, xanax and nicotine dependence is here seeking detox. Patient reports currently under parole. Last detox Detox at [facility] two months ago, but relapse after. patient in [facility] on methadone 100 mg qd, last medicated today PMHX: Asthma, Hep C, myasthenia gravis. Psych: Insomnia, depression and anxiety. Denies hx of seizures or blackouts. Exam Limitations: No Limitations - Ebola screening Have you traveled outside of the country in the last 21 days: No Have you had contact with anyone from an Ebola affected area: No - Review of Systems Constitutional: Night Sweats, Changes in sleep, Weakness, Unintentional Wgt. Loss EENT: reports: Nose Congestion Respiratory: reports: Cough (x 2 weeks) Cardiac: reports: No Symptoms Reported GI: reports: Nausea, Poor Appetite, Poor Fluid Intake : reports: No Symptoms Reported Musculoskeletal: reports: Muscle Pain Integumentary: reports: Pruritus Neuro: reports: Dizziness Endocrine: reports: Increased Thirst Hematology: reports: No Symptoms Reported Psychiatric: reports: Orientated x3, Anxious Other Systems: Reviewed and Negative Patient History - Patient Medical History Hx Anemia: No Hx Asthma: Yes (Uses albuterol inhaler, as needed) Hx Chronic Obstructive Pulmonary Disease (COPD): No Hx Cancer: No Hx Cardiac Disorders: No Hx Congestive Heart Failure: No Hx Hypertension: Yes (no meds) Hx Hypercholesterolemia: Yes (no meds) Hx Pacemaker: No HX Cerebrovascular Accident: No Hx Seizures: No Hx Dementia: No Hx Diabetes: No Hx Gastrointestinal Disorders: No Hx Liver Disease: No Hx Genitourinary Disorders: No Hx Sexually Transmitted Disorders: No Hx Renal Disease (ESRD): No Hx Thyroid Disease: No Hx Human Immunodeficiency Virus (HIV): No Hx Hepatitis C: Yes (Treated in past w/ interferon) Hx Depression: Yes (No suicide or violent ideation.) Hx Suicide Attempt: Yes Hx Bipolar Disorder: No Hx Schizophrenia: No Other Medical History: Myasthenia Gravis 2016 - Patient Surgical History Past Surgical History: Yes Hx Neurologic Surgery: No Hx Cataract Extraction: No Hx Cardiac Surgery: No Hx Lung Surgery: No Hx Breast Surgery: No Hx Breast Biopsy: No Hx Abdominal Surgery: No Hx Appendectomy: No Hx Cholecystectomy: No Hx Genitourinary Surgery: No Hx Section: No Hx Orthopedic Surgery: No Other Surgical History: thymalectomy 2016 Anesthesia Reaction: No - PPD History Previous Implant?: No Documented Results: Negative w/proof Date: 02/09/18 PPD to be Administered?: No - Smoking Cessation Smoking history: Current every day smoker Have you smoked in the past 12 months: Yes Aproximately how many cigarettes per day: 40 Hx Chewing Tobacco Use: No Initiated information on smoking cessation: Yes 'Breaking Loose' booklet given: 12/08/18 - Substance & Tx. History Hx Alcohol Use: Yes Hx Substance Use: Yes Substance Use Type: Alcohol Hx Substance Use Treatment: Yes (Detox at [facility] two months ago) - Substances abused Alcohol Substance route: Oral Frequency: Daily Amount used: 6 x six pack beer + 2 pints liquor Age of first use: 18 Date of last use: 12/08/18 Benzodiazepine (Klonopin) Substance route: Oral Frequency: Daily Amount used: 6 - 7 x 0.5 mg Age of first use: 43 Date of last use: 12/07/18 Family Disease History - Family Disease History Family Disease History: Other: Sister (leukemia, ) Admission Physical Exam BHS - Vital Signs Vital Signs: Vital Signs - 24 hr 12/08/18 15:48 Temperature 98.4 F Pulse Rate 70 Respiratory 18 Rate Blood Pressure 142/85 - Physical General Appearance: Yes: Disheveled, Mild Distress, Anxious HEENTM: Yes: EOMI, Hearing grossly Normal, Normal ENT Inspection, Normocephalic , Normal Voice, CHHAYA, Pharynx Normal, Tm's normal, Rhinorrhea, Other (cheilitis) Respiratory: Yes: Chest Non-Tender, Lungs Clear, Normal Breath Sounds, No Respiratory Distress, No Accessory Muscle Use Neck: Yes: Within Normal Limits Breast: Yes: Breast Exam Deferred Cardiology: Yes: Regular Rhythm, Regular Rate, Murmur Abdominal: Yes: Normal Bowel Sounds, Non Tender, Soft, Protuberent Genitourinary: Yes: Within Normal Limits Back: Yes: Normal Inspection Musculoskeletal: Yes: full range of Motion, Gait Steady, Pelvis Stable Extremities: Yes: Normal Capillary Refill, Normal Range of Motion, Pedal Edema ( +2 b/l lower extremity) Neurological: Yes: director rehabilitation program II-XII NML intact, Fully Oriented, Alert, Motor Strength 5/5, Depressed Affect Integumentary: Yes: Normal Color, Warm, Diaphoresis Lymphatic: Yes: Within Normal Limits - Diagnostic (1) Sedative, hypnotic or anxiolytic dependence with withdrawal, uncomplicated Current Visit: Yes Status: Acute (2) Hypertension Current Visit: Yes Status: Chronic Qualifiers: Hypertension type: essential hypertension Qualified Code(s): I10 - Essential (primary) hypertension (3) Alcohol dependence with uncomplicated withdrawal Current Visit: Yes Status: Acute (4) Nicotine dependence Current Visit: Yes Status: Acute Qualifiers: Nicotine product type: cigarettes Substance use status: in withdrawal Qualified Code(s): F17.213 - Nicotine dependence, cigarettes, with withdrawal Comment: . (5) Myasthenia gravis Current Visit: Yes Status: Chronic Cleared for Admission S - Detox or Rehab [facility] Level of Care: Medically Managed Detox Regimen/Protocol: Librium Breathalyzer - Breathalyzer Breathalyzer: 0 Urine Drug Screen - Test Device Lot number: [id number] Expiration date: 08/08/20 - Control Is test valid?: Yes - Results Drug screen NEGATIVE: No Urine drug screen results: THC-Marijuana, MTD-Methadone, BZO-Benzodiazepines Inpatient Rehab Admission - Rehab Decision to Admit Inpatient rehab admission?: No
[2018-12-08] MEDS ORDERED: MAG HYDROX/AL HYDROX/SIMETH 30 ML UNIT-DOSE CUP PO PRN (17:07)
[2018-12-08] MEDS ORDERED: chlordiazePOXIDE HCL 25 MG CAPSULE PO PRN (17:07)
[2018-12-08] MEDS ORDERED: hydrOXYzine PAMOATE 25 MG CAPSULE (FP) PO PRN (17:07)
[2018-12-08] MEDS ORDERED: MAGNESIUM CITRATE 300 ML BOTTLE PO PRN (17:07)
[2018-12-08] MEDS ORDERED: IBUPROFEN 400 MG TABLET (FP) PO PRN (17:07)
[2018-12-08] MEDS ORDERED: BISMUTH SUBSALICYLATE 524 MG/30 ML UD PO PRN (17:07)
[2018-12-08] MEDS ORDERED: ACETAMINOPHEN 325 MG TABLET (FP) PO PRN ×2 (17:07)
[2018-12-08] MEDS ORDERED: MAGNESIUM HYDROX 2400MG/30ML ORAL SUSPENSION 30 ML CUP PO PRN (17:07)
[2018-12-08] MEDS ORDERED: chlordiazePOXIDE HCL 25 MG CAPSULE PO ONE (18:00)
[2018-12-08] MEDS: NICOTINE POLACRILEX 4 MG GUM BUC PRN (20:19)
[2018-12-08] MEDS: PANTOPRAZOLE 20 MG TABLET (FP) PO SCH (22:49)
[2018-12-08] MEDS: chlordiazePOXIDE HCL 25 MG CAPSULE PO SCH (22:49)
[2018-12-08] MEDS: GABAPENTIN 300 MG CAPSULE (FP) PO SCH (22:49)
[2018-12-08] MEDS: THIAMINE HCL 100 MG TABLET (FP) PO SCH (22:49)
[2018-12-09] MEDS: chlordiazePOXIDE HCL 25 MG CAPSULE PO SCH ×4 (05:30→22:30)
[2018-12-09] MEDS: MENTHOL/PHENOL 1 EACH UD MM PRN (05:32)
[2018-12-09] MEDS: GABAPENTIN 300 MG CAPSULE (FP) PO SCH ×3 (07:45→22:30)
[2018-12-09] MEDS ORDERED: METHADONE HCL 10 MG TABLET PO SCH (08:30)
[2018-12-09] MEDS ORDERED: METHADONE HCL 40 MG DISPERSABLE TABLET ONE (08:42)
[2018-12-09] MEDS ORDERED: METHADONE HCL 10 MG TABLET ONE (08:43)
[2018-12-09] MEDS: METHADONE 80 MG, METHADONE 20 MG PO SCH (08:49)
--- NOTE | 2018-12-09 09:09 | PN ---
BHS CIWA - CIWA Score Nausea/Vomitin Muscle Tremors: 2 Anxiety: 2 Agitation: 2 Paroxysmal Sweats: 1-Minimal Palms Moist Orientation: 0-Oriented Tacttile Disturbances: 1-Very Mild Itch/Numbness Auditory Disturbances: 1-Very Mild Visual Disturbances: 0-None Headache: 2-Mild CIWA-Ar Total Score: 13 BHS Progress Note (SOAP) Subjective: alert,irritable,anxious,interrupted sleep,tremor Objective: 12/09/18 09:08 Vital Signs Temperature 96.6 F L 12/09/18 06:00 Pulse Rate 54 L 12/09/18 06:00 Respiratory Rate 18 12/09/18 06:00 Blood Pressure 124/62 12/09/18 06:00 O2 Sat by Pulse Oximetry (%) labs pending Assessment: 12/09/18 09:08 withdrawal symptom Plan: continue detox
--- NOTE | 2018-12-09 09:25 | CONSULT ---
[facility] Psychiatric Consult - Data Date of interview: 12/09/18 Admission source: Self-referred Identifying data: Mr Almaguer is a 43 years old single [place] male, father of an 8 years old son, unemployed with no source of income, homeless seeking detox treatment for alcohol and benzodiazepine Substance Abuse History: Reports history of alcohol and klonopin use. Refer to addiction coundelor's summary for further information Medical History: Significant for bronchial asthma, hypertension, myasthenia gravis, umbilical hernia and history of treatment for hepatitis C. Patient is on methadone 100 g/day([facility], [place]). Smokes cigarettes 2 ppd Psychiatric History: Reports that his first psychiatric contact was in 2018 while in residential program at [facility] for 8 months. There, he saw a psychiatrist who diagnosed him with depression and started him on Zoloft 50 mg/ day. Reports that he was not taking medication for a while after running out of supply provided on discharge but recently he went to [place] ED for treatment of Myasthenia and he was given a refill for Zoloft. Told automotive service writer that he has medication in his property. Denies psychiatric hospitalization or suicidal attempt. At present, reports feeing anxious and sleeping poorly. Requests to have Trazadone ordered as he responded to it well in the past Physical/Sexual Abuse/Trauma History: Denies history of emotional, physical or sexual abuse as well as DV relationship. Additional Comment: Reports histoy of 2 felony convictions. Reports being on parole till 2020 Mental Status Exam - Mental Status Exam Alert and Oriented to: Time, Place, Person Cognitive Function: Fair Patient Appearance: Well Groomed Mood: Anxious Affect: Appropriate Patient Behavior: Cooperative Speech Pattern: Clear Voice Loudness: Normal Thought Process: Intact, Goal Oriented Thought Disorder: Not Present Hallucinations: Denies Suicidal Ideation: Denies Homicidal Ideation: Denies Insight/Judgement: Poor Sleep: Poorly Appetite: Good Muscle strength/Tone: Normal Gait/Station: Normal Psychiatric Findings - Problem List ([place] 1, 2,3) (1) Depressive disorder Current Visit: Yes Status: Chronic (2) MDD (major depressive disorder) Current Visit: Yes Status: Ruled-out (3) Substance-induced anxiety disorder Current Visit: Yes Status: Acute (4) Substance-induced sleep disorder Current Visit: Yes Status: Acute (5) Alcohol dependence with uncomplicated withdrawal Current Visit: Yes Status: Acute (6) Sedative, hypnotic or anxiolytic dependence with withdrawal, uncomplicated Current Visit: Yes Status: Acute (7) Opioid dependence on agonist therapy Current Visit: No Status: Chronic Comment: . (8) Nicotine dependence Current Visit: Yes Status: Chronic Qualifiers: Nicotine product type: cigarettes Substance use status: in withdrawal Qualified Code(s): F17.213 - Nicotine dependence, cigarettes, with withdrawal Comment: . (9) Hypertension Current Visit: Yes Status: Chronic Qualifiers: Hypertension type: essential hypertension Qualified Code(s): I10 - Essential (primary) hypertension (10) Myasthenia gravis Current Visit: Yes Status: Chronic (11) Hepatitis C Current Visit: Yes Status: Chronic - Initial Treatment Plan Initial Treatment Plan: 1) Continue Zoloft 50 mg po daily. 2) Start Trazadone 100 mg po HS. 3) Continue inpatient detoxification
[2018-12-09 10:06] LABS: HEMATOCRIT 39.8 % (35.4-49); HEMOGLOBIN 13.4 GM/dL (11.7-16.9); MCH 28.1 pg (25.7-33.7); MCHC 33.5 g/dl (32.0-35.9); MEAN CELL VOLUME 83.9 fl (80-96); PLATELET COUNT 176 K/MM3 (134-434); RBC 4.75 M/mm3 (4.00-5.60); RDW 15.3 % (11.9-15.9)
[2018-12-09 10:30] LABS: ALBUMIN 3.2 g/dl (3.4-5.0); ALK PHOS 62 U/L (45-117); ANION GAP 4 MMOL/L (8-16); BILIRUBIN,TOTAL 0.4 mg/dL (0.2-1); BLOOD UREA NITROGEN 10 mg/dL (7-18); CALCIUM 8.8 mg/dL (8.5-10.1); CHLORIDE 107 mmol/L (98-107); CO2 28 mmol/L (21-32); CREATININE 0.6 mg/dL (0.55-1.3); GLUCOSE,RANDOM 84 mg/dL (74-106); POTASSIUM 4.2 mmol/L (3.5-5.1); SGOT/AST 42 U/L (15-37); SGPT/ALT 88 U/L (13-61); SODIUM 139 mmol/L (136-145); TOT PROT 5.6 g/dl (6.4-8.2)
[2018-12-09] MEDS: PRENATAL VITAMINS W/ FOLIC ACID TABLET (FP) PO SCH (10:34)
[2018-12-09] MEDS: predniSONE 20 MG TABLET (UD) PO SCH (10:34)
[2018-12-09] MEDS: PANTOPRAZOLE 20 MG TABLET (FP) PO SCH ×2 (10:34→22:30)
[2018-12-09] MEDS: NICOTINE 21 MG/24 HOURS TOPICAL PATCH TD SCH (10:34)
[2018-12-09] MEDS: PYRIDOSTIGMINE BROMIDE 60 MG TABLET PO SCH (10:35)
--- NOTE | 2018-12-09 14:46 | EKG ---
Test Reason : Blood Pressure : / mmHG Vent. Rate : 054 BPM Atrial Rate : 054 BPM P-R Int : 170 ms QRS Dur : 094 ms QT Int : 440 ms P-R-T Axes : 041 001 -02 degrees QTc Int : 417 ms SINUS BRADYCARDIA VOLTAGE CRITERIA FOR LEFT VENTRICULAR HYPERTROPHY SEPTAL INFARCT , AGE UNDETERMINED ABNORMAL ECG WHEN COMPARED WITH ECG OF 07-FEB-2018 18:47, NO SIGNIFICANT CHANGE WAS FOUND Confirmed by Cecil Dimas ([id number]) on 12/09/2018 2:46:08 PM Referred By: DANIKA BECKETT Confirmed By:Cecil Dimas
[2018-12-09] MEDS: THIAMINE HCL 100 MG TABLET (FP) PO SCH (22:29)
[2018-12-09] MEDS: MELATONIN 5 MG TABLETS PO PRN (22:31)
[2018-12-10] MEDS ORDERED: METHADONE HCL 40 MG DISPERSABLE TABLET ONE (05:16)
[2018-12-10] MEDS ORDERED: METHADONE HCL 10 MG TABLET ONE (05:17)
[2018-12-10] MEDS: METHADONE 80 MG, METHADONE 20 MG PO SCH (05:31)
[2018-12-10] MEDS: chlordiazePOXIDE HCL 25 MG CAPSULE PO SCH ×3 (05:32→17:43)
[2018-12-10] MEDS: GABAPENTIN 300 MG CAPSULE (FP) PO SCH ×3 (05:32→22:10)
[2018-12-10] MEDS: guaiFENesin 200 MG/10 ML 10 ML UNIT-DOSE CUPS PO PRN ×2 (10:16→22:42)
[2018-12-10] MEDS: PYRIDOSTIGMINE BROMIDE 60 MG TABLET PO SCH (10:20)
--- NOTE | 2018-12-10 10:30 | PN ---
BHS CIWA - CIWA Score Nausea/Vomitin-Mild Nausea/No Vomiting Muscle Tremors: 3 Anxiety: 4-Mod. Anxious/Guarded Agitation: 2 Paroxysmal Sweats: 1-Minimal Palms Moist Orientation: 0-Oriented Tacttile Disturbances: 0-None Auditory Disturbances: 0-None Visual Disturbances: 0-None Headache: 0-None Present CIWA-Ar Total Score: 11 BHS Progress Note (SOAP) Subjective: pt states still feeling anxious, day #3 of alcohol detox protocol O: Vital Signs - 24 hr 12/09/18 12/09/18 12/09/18 13:53 16:46 17:30 Temperature 96.4 F L 97.7 F 96.8 F L Pulse Rate 57 L 53 L 54 L Respiratory 18 18 18 Rate Blood Pressure 113/51 L 111/54 L 125/83 12/09/18 12/10/18 12/10/18 21:06 00:30 03:30 Temperature 98.2 F Pulse Rate 86 Respiratory 20 18 18 Rate Blood Pressure 140/85 12/10/18 12/10/18 07:45 09:04 Temperature 97.5 F L 98.8 F Pulse Rate 49 L 76 Respiratory 18 16 Rate Blood Pressure 129/76 134/79 Laboratory Tests 12/09/18 12/09/18 12/09/18 07:00 07:00 07:00 WBC 8.0 RBC 4.75 Hgb 13.4 Hct 39.8 MCV 83.9 MCH 28.1 MCHC 33.5 RDW 15.3 Plt Count 176 MPV 9.0 Sodium 139 Potassium 4.2 Chloride 107 Carbon Dioxide 28 Anion Gap 4 L BUN 10 Creatinine 0.6 Creat Clearance w eGFR 148.48 Random Glucose 84 Calcium 8.8 Total Bilirubin 0.4 AST 42 H ALT 88 H Alkaline Phosphatase 62 Total Protein 5.6 L Albumin 3.2 L RPR Titer Nonreactive HIV 1&2 Antibody Screen HIV P24 Antigen 12/09/18 07:00 WBC RBC Hgb Hct MCV MCH MCHC RDW Plt Count MPV Sodium Potassium Chloride Carbon Dioxide Anion Gap BUN Creatinine Creat Clearance w eGFR Random Glucose Calcium Total Bilirubin AST ALT Alkaline Phosphatase Total Protein Albumin RPR Titer HIV 1&2 Antibody Screen Negative HIV P24 Antigen Negative ess nl labs and VS A/p: continue alcohol detox protocol- d/w nursing to administer prn meds for relieving withdrawal Sx
[2018-12-10] MEDS: predniSONE 20 MG TABLET (UD) PO SCH (10:36)
[2018-12-10] MEDS: PRENATAL VITAMINS W/ FOLIC ACID TABLET (FP) PO SCH (10:36)
[2018-12-10] MEDS: cloNIDine HCL 0.1 MG TABLET PO PRN (10:38)
[2018-12-10] MEDS: NICOTINE 21 MG/24 HOURS TOPICAL PATCH TD SCH (10:38)
[2018-12-10] MEDS: PANTOPRAZOLE 20 MG TABLET (FP) PO SCH ×2 (10:39→22:10)
[2018-12-10] MEDS: NICOTINE POLACRILEX 4 MG GUM BUC PRN (21:27)
[2018-12-10] MEDS: chlordiazePOXIDE HCL 10 MG CAPSULE PO SCH (22:10)
[2018-12-10] MEDS: THIAMINE HCL 100 MG TABLET (FP) PO SCH (22:10)
[2018-12-10] MEDS: MELATONIN 5 MG TABLETS PO PRN (22:11)
[2018-12-10] MEDS: MENTHOL/PHENOL 1 EACH UD MM PRN (22:44)
[2018-12-10] MEDS ORDERED: chlordiazePOXIDE HCL 10 MG CAPSULE PO PRN (23:00)
[2018-12-11] MEDS ORDERED: METHADONE HCL 10 MG TABLET ONE (04:44)
[2018-12-11] MEDS ORDERED: METHADONE HCL 40 MG DISPERSABLE TABLET ONE (04:44)
[2018-12-11] MEDS: chlordiazePOXIDE HCL 10 MG CAPSULE PO SCH ×4 (06:38→22:16)
[2018-12-11] MEDS: METHADONE 80 MG, METHADONE 20 MG PO SCH (06:38)
[2018-12-11] MEDS: GABAPENTIN 300 MG CAPSULE (FP) PO SCH ×3 (06:38→22:16)
--- NOTE | 2018-12-11 09:01 | PN ---
S Progress Note (SOAP) Subjective: alert,irritable,anxious,interrupted sleep Objective: 12/11/18 09:00 Vital Signs Temperature 97.7 F 12/11/18 07:24 Pulse Rate 46 L 12/11/18 07:24 Respiratory Rate 18 12/11/18 07:24 Blood Pressure 133/66 12/11/18 07:24 O2 Sat by Pulse Oximetry (%) Assessment: 12/11/18 09:01 withdrawal symptom Plan: continue detox,discharge in am
[2018-12-11] MEDS: cloNIDine HCL 0.1 MG TABLET PO PRN (10:18)
[2018-12-11] MEDS: PYRIDOSTIGMINE BROMIDE 60 MG TABLET PO SCH (10:18)
[2018-12-11] MEDS: PRENATAL VITAMINS W/ FOLIC ACID TABLET (FP) PO SCH (10:18)
[2018-12-11] MEDS: predniSONE 20 MG TABLET (UD) PO SCH (10:18)
[2018-12-11] MEDS: PANTOPRAZOLE 20 MG TABLET (FP) PO SCH ×2 (10:18→22:16)
[2018-12-11] MEDS: NICOTINE 21 MG/24 HOURS TOPICAL PATCH TD SCH (10:19)
[2018-12-11] MEDS: NICOTINE POLACRILEX 4 MG GUM BUC PRN ×3 (10:19→20:33)
[2018-12-11] MEDS: guaiFENesin 200 MG/10 ML 10 ML UNIT-DOSE CUPS PO PRN (10:57)
--- NOTE | 2018-12-11 12:41 | PN ---
S Progress Note Note: patient is stable for dsicharge today,follow up with [facility] as arrangement
--- NOTE | 2018-12-11 12:47 | DS ---
[facility] Detox Discharge Summary Admission Date: 12/08/18 Discharge Date: 12/11/18 - History Present History: Alcohol Dependence, Sedative Dependence Additional Comments: follow up with [facility] as arrangement Pertinent Past History: hypertension nicotine dependence myasthenia gravis - Physical Exam Results Vital Signs: Vital Signs Temperature 97.7 F 12/11/18 07:24 Pulse Rate 46 L 12/11/18 07:24 Respiratory Rate 18 12/11/18 07:24 Blood Pressure 133/66 12/11/18 07:24 O2 Sat by Pulse Oximetry (%) Pertinent Admission Physical Exam Findings: withdrawal signs and symptom - Treatment Hospital Course: Detox Protocol Followed, Detoxed Safely, Responded well, Discharged Condition Good, Rehab Referral Accepted Patient has Accepted a Rehab Referral to: [facility] - Medication Discharge Medications: Ambulatory Orders Methadone (Detox) [Dolophine -] 110 mg PO DAILY 02/07/18 Gabapentin [Neurontin -] 300 mg PO Q8H 12/08/18 Prednisone [Deltasone] 20 mg PO DAILY 12/08/18 Pyridostigmine [Mestinon] 60 mg PO DAILY 12/08/18 Sertraline HCl [Zoloft -] 50 mg PO DAILY 12/08/18 - Diagnosis (1) Alcohol dependence with uncomplicated withdrawal Current Visit: Yes Status: Acute (2) Hepatitis C Current Visit: Yes Status: Chronic (3) Hypertension Current Visit: Yes Status: Chronic Qualifiers: Hypertension type: essential hypertension Qualified Code(s): I10 - Essential (primary) hypertension (4) Myasthenia gravis Current Visit: Yes Status: Chronic (5) Dehydration Current Visit: No Status: Acute (6) Nicotine dependence Current Visit: No Status: Acute Qualifiers: Nicotine product type: cigarettes Substance use status: in withdrawal Qualified Code(s): F17.213 - Nicotine dependence, cigarettes, with withdrawal (7) Methadone maintenance therapy patient Current Visit: No Status: Chronic - AMA Did Patient Leave Against Medical Advice: No
--- NOTE | 2018-12-11 14:33 | PN ---
[facility] Progress Note Note: patient feel weak,history of myasthenia gravis Vital Signs Temperature 97.7 F 12/11/18 07:24 Pulse Rate 46 L 12/11/18 07:24 Respiratory Rate 18 12/11/18 07:24 Blood Pressure 133/66 12/11/18 07:24 O2 Sat by Pulse Oximetry (%) will observe patient in for 24 hrs close monitoring possible discharge in 24 hrs cancel discharge today discharge in am
[2018-12-11] MEDS ORDERED: traZODone HCL 100 MG TABLET (FP) PO SCH (22:00)
[2018-12-11] MEDS: THIAMINE HCL 100 MG TABLET (FP) PO SCH (22:16)
[2018-12-12] MEDS ORDERED: METHADONE HCL 10 MG TABLET ONE (06:11)
[2018-12-12] MEDS ORDERED: METHADONE HCL 40 MG DISPERSABLE TABLET ONE (06:11)
[2018-12-12] MEDS: GABAPENTIN 300 MG CAPSULE (FP) PO SCH (06:40)
[2018-12-12] MEDS: METHADONE 80 MG, METHADONE 20 MG PO SCH (06:41)
--- NOTE | 2018-12-12 08:51 | DS ---
[facility] Detox Discharge Summary Admission Date: 12/08/18 Discharge Date: 12/12/18 - History Present History: Alcohol Dependence, Cocaine Dependence, Sedative Dependence - Physical Exam Results Vital Signs: Vital Signs Temperature 97.6 F 12/12/18 06:26 Pulse Rate 75 12/12/18 06:26 Respiratory Rate 18 12/12/18 06:26 Blood Pressure 100/62 12/12/18 06:26 O2 Sat by Pulse Oximetry (%) - Treatment Hospital Course: Detox Protocol Followed, Detoxed Safely, Responded well, Discharged Condition Good, Rehab Referral Accepted - Medication Discharge Medications: Ambulatory Orders Methadone (Detox) [Dolophine -] 110 mg PO DAILY 02/07/18 Gabapentin [Neurontin -] 300 mg PO Q8H 12/08/18 Prednisone [Deltasone] 20 mg PO DAILY 12/08/18 Pyridostigmine [Mestinon -] 60 mg PO DAILY 12/08/18 Sertraline HCl [Zoloft -] 50 mg PO DAILY 12/08/18 Pantoprazole Sodium [Protonix -] 20 mg PO BID tablet.ec 12/11/18 - Diagnosis (1) Alcohol dependence with uncomplicated withdrawal Current Visit: Yes Status: Chronic (2) Sedative, hypnotic or anxiolytic dependence with withdrawal, uncomplicated Current Visit: Yes Status: Chronic (3) Substance-induced anxiety disorder Current Visit: Yes Status: Acute (4) Substance-induced sleep disorder Current Visit: Yes Status: Acute (5) Depressive disorder Current Visit: Yes Status: Chronic (6) Hepatitis C Current Visit: Yes Status: Chronic Qualifiers: Viral hepatitis chronicity: chronic (7) Hypertension Current Visit: Yes Status: Chronic Qualifiers: Hypertension type: essential hypertension Qualified Code(s): I10 - Essential (primary) hypertension (8) Myasthenia gravis Current Visit: Yes Status: Chronic (9) Nicotine dependence Current Visit: Yes Status: Chronic Qualifiers: Nicotine product type: cigarettes Substance use status: uncomplicated Qualified Code(s): F17.210 - Nicotine dependence, cigarettes, uncomplicated (10) MDD (major depressive disorder) Current Visit: Yes Status: Ruled-out (11) Cocaine dependence Current Visit: No Status: Acute Qualifiers: Substance use status: uncomplicated Qualified Code(s): F14.20 - Cocaine dependence, uncomplicated (12) Cocaine use disorder Current Visit: Yes Status: Chronic (13) Dehydration Current Visit: No Status: Acute (14) Drug-seeking behavior Current Visit: No Status: Acute (15) Nicotine dependence Current Visit: Yes Status: Acute Qualifiers: Nicotine product type: cigarettes Substance use status: uncomplicated Qualified Code(s): F17.210 - Nicotine dependence, cigarettes, uncomplicated (16) Bradycardia Current Visit: No Status: Chronic (17) Hernia, umbilical Current Visit: No Status: Chronic Qualifiers: Obstruction and gangrene presence: without obstruction or gangrene Qualified Code(s): K42.9 - Umbilical hernia without obstruction or gangrene (18) Methadone maintenance therapy patient Current Visit: Yes Status: Chronic (19) Opioid dependence on agonist therapy Current Visit: No Status: Chronic - AMA Did Patient Leave Against Medical Advice: No (referred to inpatient rehab ([facility] or [facility]))
[2018-12-12 09:26] VITALS: BP 134/78; PULSE 61; TEMP 98.3
[2018-12-12] MEDS ORDERED: SERTRALINE HCL 50 MG TABLET (FP) PO SCH (10:00)
[2018-12-12] MEDS: PYRIDOSTIGMINE BROMIDE 60 MG TABLET PO SCH (10:38)
[2018-12-12] MEDS: NICOTINE 21 MG/24 HOURS TOPICAL PATCH TD SCH (10:38)
[2018-12-12] MEDS: PANTOPRAZOLE 20 MG TABLET (FP) PO SCH (10:38)
[2018-12-12] MEDS: chlordiazePOXIDE HCL 10 MG CAPSULE PO SCH (10:38)
[2018-12-12] MEDS: predniSONE 20 MG TABLET (UD) PO SCH (10:38)
[2018-12-12] MEDS: PRENATAL VITAMINS W/ FOLIC ACID TABLET (FP) PO SCH (10:39)
== END 2018-12-12 11:39 | disposition home or self-care (01) | DRG 773 ==
LOC: YASAS 15:12 → Y6N 17:35
PROVIDERS: ADMIT Surgery; ATTEND Surgery
PROC: HZ2ZZZZ Detoxification Services for Substance Abuse Treatment (ICD-10-PCS; principal; 2018-12-08)
DX: F10.230 Alcohol dependence with withdrawal, uncomplicated (principal); F13.230 Sedative, hypnotic or anxiolytic dependence with withdrawal, uncomplicated; F14.20 Cocaine dependence, uncomplicated; F11.20 Opioid dependence, uncomplicated; F17.210 Nicotine dependence, cigarettes, uncomplicated; F19.280 Other psychoactive substance dependence with psychoactive substance-induced anxiety disorder; F19.282 Other psychoactive substance dependence with psychoactive substance-induced sleep disorder; F32.9 Major depressive disorder, single episode, unspecified; I10 Essential (primary) hypertension; K42.9 Umbilical hernia without obstruction or gangrene; E86.0 Dehydration; G47.00 Insomnia, unspecified; G70.00 Myasthenia gravis without (acute) exacerbation; R00.1 Bradycardia, unspecified; B18.2 Chronic viral hepatitis C
CPT/HCPCS: 36415; 80053; 85027; 86593; 87389; 93005; 93010; J0735